=== PATIENT | female | born 1975 | race Caucasian/White ===

== ENCOUNTER → 2024-03-06 09:22 | Outpatient (BNVA) | payer BC, SELFPAY | PROVIDERS: Family Provider Nurse Practitioner Family; PCP Nurse Practitioner Family; Visit Provider Nurse Practitioner Family | DX: Z79.899 Other long term (current) drug therapy (principal); Z13.6 Encounter for screening for cardiovascular disorders; Z98.890 Other specified postprocedural states; M25.50 Pain in unspecified joint | CPT/HCPCS: 80053; 80061; 81003; 82306; 83036; 84439; 84443; 85025; 85651; 86038; 86140; 86200; 86431 ==